=== PATIENT | female | born 1985 | race African-American/Black ===

== ENCOUNTER 2017-04-10 14:59 | Emergency (ER) | payer MEDICAID, SELFPAY | END 2017-04-10 15:14 | disposition home or self-care (01) | LOC: SCSER 14:59 | DX: L73.9 Follicular disorder, unspecified (principal); F32.9 Major depressive disorder, single episode, unspecified | CPT/HCPCS: 99283 ==

== ENCOUNTER 2017-06-06 08:30 | Emergency (ER) | payer MEDICAID, OTHER | END 2017-06-06 09:00 | disposition home or self-care (01) | LOC: SCSER 08:30 | DX: J02.9 Acute pharyngitis, unspecified (principal); F32.9 Major depressive disorder, single episode, unspecified | CPT/HCPCS: 87081; 87430; 99283 ==

== ENCOUNTER 2017-07-26 09:15 | Outpatient (CLI) | payer OTHER ==
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
== END 2017-07-26 09:16 | disposition home or self-care (01) ==
LOC: TBSIIMAG 09:15
PROVIDERS: ATTEND Surgery
DX: W34.00XD Accidental discharge from unspecified firearms or gun, subsequent encounter (principal); S09.90XD Unspecified injury of head, subsequent encounter
CPT/HCPCS: 70470

== ENCOUNTER 2017-12-06 19:52 | Emergency (ER) | payer OTHER ==
[2017-12-06] MEDS ORDERED: Lidocaine 1% w/Epinephrine 1:100K 30 ML VIAL ONE (19:57)
[2017-12-06] MEDS ORDERED: Adacel (T-DAP) 0.5 ML VIAL ONE (20:09)
[2017-12-06] MEDS ORDERED: Bacitracin Zinc 1 Packet ONE (20:15)
== END 2017-12-06 20:27 | disposition home or self-care (01) ==
LOC: SCSER 19:52
DX: L02.412 Cutaneous abscess of left axilla (principal); F32.9 Major depressive disorder, single episode, unspecified
CPT/HCPCS: 10060; 90471; 90715; J2001

== ENCOUNTER 2017-12-16 22:59 | Emergency (ER) | payer OTHER ==
[2017-12-16] MEDS ORDERED: Sulfameth/Trimethoprim DS 800-160mg TAB ONE (23:52)
== END 2017-12-16 23:48 | disposition home or self-care (01) ==
LOC: SCSER 22:59
DX: L02.412 Cutaneous abscess of left axilla (principal); F32.9 Major depressive disorder, single episode, unspecified
CPT/HCPCS: 87070; 87077; 87186; 87205; 99283

== ENCOUNTER 2018-09-13 12:15 | Outpatient (CLI) | payer OTHER ==
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
== END 2018-09-13 12:16 | disposition home or self-care (01) ==
LOC: BICCT 12:15
PROVIDERS: ATTEND Family Medicine
DX: S07 Crushing injury of head (principal); Z98.890 Other specified postprocedural states
CPT/HCPCS: 70486

== ENCOUNTER 2021-04-28 11:56 | Emergency (ER) | payer OTHER ==
[2021-04-28] MEDS ORDERED: Acetaminophen 500 MG TAB ONE (12:43)
[2021-04-28] MEDS ORDERED: Ibuprofen 200 MG TAB ONE (12:43)
[2021-04-28 22:43] LABS: SARS-CoV-2 PCR by NAA Not Detected (NotDetected)
== END 2021-04-28 13:21 | disposition home or self-care (01) ==
LOC: ERS 11:56
DX: B34.9 Viral infection, unspecified (principal); J02.9 Acute pharyngitis, unspecified; Z20.822 Contact with and (suspected) exposure to COVID-19
CPT/HCPCS: 99284; U0003; U0005

== ENCOUNTER 2021-06-13 23:58 | Emergency (ER) | payer OTHER ==
[2021-06-14] MEDS ORDERED: Ketorolac Tromethamine 30 MG/ML VIAL ONE (02:49)
== END 2021-06-14 03:00 | disposition home or self-care (01) ==
LOC: ERS 23:58
DX: K08.89 Other specified disorders of teeth and supporting structures (principal)
CPT/HCPCS: 96372; 99281; J1885

== ENCOUNTER 2021-07-18 20:55 | Emergency (ER) | payer OTHER | END 2021-07-18 23:00 | disposition home or self-care (01) | LOC: ERS 20:55 | DX: H10.9 Unspecified conjunctivitis (principal) | CPT/HCPCS: 99282 ==